=== PATIENT | male | born 1940 | race African-American/Black ===

== ENCOUNTER 2018-08-24 16:20 | Emergency (ER) | payer MEDICARE, MEDICAID | END 2018-08-24 16:38 | disposition left against medical advice (07) | LOC: ERS 16:20 | DX: Z53.21 Procedure and treatment not carried out due to patient leaving prior to being seen by health care provider (principal) ==

== ENCOUNTER 2020-01-02 09:54 | Emergency (ER) | payer MEDICARE ==
[2020-01-02 11:03] LABS: #Basophils 0.1 thou/uL (0.0-0.2); #Eosinphils 0.4 thou/uL (0.0-0.7); #Monocytes 0.6 thou/uL (0.11-0.59); #Neutrophils 4.7 thou/uL (1.40-6.50); %Basophils 0.6 % (0.0-1.0); %Lymphocytes 34.1 % (21.0-51.0); %Neutrophils 53.2 % (42.0-75.0); Hemoglobin 11.6 g/dL (14.0-18.0); Mean Corpuscular HGB CONC 33.7 g/dL (32.0-36.0); Mean Corpuscular Hemoglobin 36.5 pg (27.0-31.0); Mean Platelet Volume 7.4 fL (7.4-10.4); Platelet Count 271 thou/uL (130-400); RBC Distribution Width 12.4 % (11.5-14.5); Red Blood Cell (RBC) Count 3.19 mill/uL (4.70-6.10); White Blood Cell (WBC) Count 8.8 thou/uL (4.8-10.8)
[2020-01-02 11:25] LABS: ALT (SGPT) 12 U/L (8-55); AST (SGOT) 15 U/L (5-34); Albumin 3.4 g/dL (3.4-4.8); Alkaline Phosphatase 79 U/L (40-110); Anion Gap 11 mmol/L (10-20); BUN (Urea Nitrogen) 15 mg/dL (8.4-25.7); Bilirubin, Total 0.4 mg/dL (0.2-1.2); Calc. Creatinine Clearance 0 mL/min (70-130); Calcium 8.8 mg/dL (7.8-10.44); Carbon Dioxide 25 mmol/L (23-31); Chloride 106 mmol/L (98-107); Estimated GFR-MDRD 84; Globulin 2.8 g/dL (2.4-3.5); Glucose 90 mg/dL (83-110); Potassium 3.9 mmol/L (3.5-5.1); Protein, Total 6.2 g/dL (5.8-8.1); Sodium 138 mmol/L (136-145)
--- NOTE | 2020-01-02 11:36 | RAD ---
RADIOGRAPH CHEST 1 VIEW: DATE: 01/02/2020 HISTORY: 79-year-old male with hypertension, status post acute chest trauma from fall. FINDINGS: There are no air space densities, pulmonary edema, pneumothorax, or cardiomegaly. The lateral costop hrenic angles are sharp. IMPRESSION: No acute cardiopulmonary findings. [email or web address] [] POS: [facility]
[2020-01-02 12:10] LABS: MDiff Complete? YES; Macrocytosis SLIGHT = 6-15 cells (100X) (0-5/hpf); Platelet Morphology Comment Appears Adequate
[2020-01-02] MEDS ORDERED: Amlodipine 5 MG TAB ONE (12:33)
--- NOTE | 2020-01-07 12:07 | EKG ---
Test Reason : Blood Pressure : / mmHG Vent. Rate : 044 BPM Atrial Rate : 044 BPM P-R Int : 178 ms QRS Dur : 088 ms QT Int : 476 ms P-R-T Axes : 071 049 053 degrees QTc Int : 406 ms Marked sinus bradycardia Abnormal ECG Confirmed by GRZEGORZ THURMAN M.D. ([id number]), editorial manager JJ ZAPATA ([id number]) on 01/07/2020 12:07:13 PM Referred By: Confirmed By:GRZEGORZ THURMAN M.D.
== END 2020-01-02 12:56 | disposition home or self-care (01) ==
LOC: ERS 09:54
DX: I10 Essential (primary) hypertension (principal); R00.1 Bradycardia, unspecified; F17.210 Nicotine dependence, cigarettes, uncomplicated; Z76.0 Encounter for issue of repeat prescription; Z79.899 Other long term (current) drug therapy
CPT/HCPCS: 71045; 80053; 83880; 84443; 84484; 85025; 93005

== ENCOUNTER 2020-08-07 13:27 | Inpatient (IN) | payer MEDICARE ==
[2020-08-07 15:00] LABS: Hemoglobin 13.1 g/dL (14.0-18.0); Mean Corpuscular Hemoglobin 34.4 pg (27.0-31.0); Mean Platelet Volume 7.7 fL (7.4-10.4); Platelet Count 266 thou/uL (130-400); RBC Distribution Width 12.5 % (11.5-14.5); Red Blood Cell (RBC) Count 3.79 mill/uL (4.70-6.10); White Blood Cell (WBC) Count 9.1 thou/uL (4.8-10.8)
[2020-08-07 15:01] LABS: #Lymphocytes 0.8 thou/uL (1.20-3.40); #Monocytes 0.3 thou/uL (0.11-0.59); #Neutrophils 8.1 thou/uL (1.40-6.50); %Eosinophils 0.1 % (0.0-10.0); %Lymphocytes 8.8 % (21.0-51.0); %Monocytes 2.8 % (0.0-10.0); %Neutrophils 88.3 % (42.0-75.0)
[2020-08-07 15:18] LABS: MDiff Complete? YES; Macrocytosis SLIGHT = 6-15 cells (100X) (0-5/hpf); Platelet Morphology Comment Appears Adequate; Polychromasia SLIGHT = 2-3 cells (100X) (0-2/hpf)
[2020-08-07 17:17] LABS: ALT (SGPT) 9 U/L (8-55); AST (SGOT) 20 U/L (5-34); Albumin 4.2 g/dL (3.4-4.8); Alkaline Phosphatase 97 U/L (40-110); Anion Gap 16 mmol/L (10-20); BUN (Urea Nitrogen) 20 mg/dL (8.4-25.7); Bilirubin, Total 0.5 mg/dL (0.2-1.2); Calc. Creatinine Clearance 0 mL/min (70-130); Calcium 9.9 mg/dL (7.8-10.44); Carbon Dioxide 22 mmol/L (23-31); Chloride 107 mmol/L (98-107); Globulin 3.5 g/dL (2.4-3.5); Glucose 106 mg/dL (83-110); Potassium 4.6 mmol/L (3.5-5.1); Protein, Total 7.7 g/dL (5.8-8.1); Sodium 140 mmol/L (136-145)
[2020-08-07] MEDS ORDERED: Amlodipine 10 MG TAB PO SCH (17:45)
[2020-08-07] MEDS ORDERED: Hydrochlorothiazide 25 MG TAB PO SCH (17:45)
[2020-08-07] MEDS ORDERED: Amlodipine 5 MG TAB PO SCH (18:00)
[2020-08-07] MEDS ORDERED: Calcium Carbonate 500 MG ChewTAB PO PRN (18:00)
[2020-08-07] MEDS ORDERED: NIFEdipine XL 30 MG TAB PO SCH (18:00)
[2020-08-07] MEDS ORDERED: Acetaminophen 325 MG TAB PO PRN (18:00)
[2020-08-07] MEDS ORDERED: Ondansetron ODT 4 MG TAB PO PRN (18:00)
[2020-08-07] MEDS ORDERED: NIFEdipine XL 30 MG TAB ONE (18:09)
[2020-08-07 19:36] LABS: Troponin I 0.012 ng/mL (< 0.028)
[2020-08-07 22:33] LABS: Bacteria/HPF None Seen HPF (None Seen); Bilirubin Negative (Negative); Blood, Urine Negative (Negative); Clarity Clear (Clear); Glucose, Urine (Dipstick) Normal (Negative); Ketone, Urine 10 mg/dL (Negative); Leukocyte Negative Leu/uL (Negative); Nitrite Negative (Negative); Protein, Urine (Dipstick) 50 mg/dL (Neg-Trace); RBC/HPF 0-3 HPF (0-3); Specific Gravity, Urine 1.022 (1.002-1.036); Squamous Epithelial 0-3 HPF (0-3); WBC/HPF 0-3 HPF (0-3); pH, Urine 6.5 (5.0-9.0)
[2020-08-07 22:37] LABS: Troponin I 0.021 ng/mL (< 0.028)
[2020-08-07 22:40] LABS: Medtox Reader # READER 4
[2020-08-07 22:41] LABS: Amphetamine Not Detected (NotDetected); Barbiturates Screen Not Detected (NotDetected); Benzodiazepine Screen Not Detected (NotDetected); Cocaine Metabolite Screen Not Detected (NotDetected); Medtox Control Line Valid? VALID (VALID); Methadone Not Detected (NotDetected); Methamphetamine Not Detected (NotDetected); Opiate Screen Not Detected (NotDetected); Oxycodone Screen Not Detected (NotDetected); Phencyclidine (PCP) Not Detected (NotDetected); THC/Cannabinoid Screen Not Detected (NotDetected); Tricyclic Screen Not Detected (NotDetected)
[2020-08-08 04:54] LABS: SARS-CoV-2 PCR by NAA Not Detected (NotDetected)
[2020-08-08 04:59] LABS: #Basophils 0.1 thou/uL (0.0-0.2); #Eosinphils 0.1 thou/uL (0.0-0.7); #Lymphocytes 3.2 thou/uL (1.20-3.40); #Monocytes 0.6 thou/uL (0.11-0.59); #Neutrophils 5.6 thou/uL (1.40-6.50); %Basophils 0.9 % (0.0-1.0); %Lymphocytes 33.1 % (21.0-51.0); %Monocytes 6.2 % (0.0-10.0); %Neutrophils 58.8 % (42.0-75.0); Hemoglobin 11.7 g/dL (14.0-18.0); Mean Corpuscular HGB CONC 31.8 g/dL (32.0-36.0); Mean Platelet Volume 7.8 fL (7.4-10.4); Platelet Count 259 thou/uL (130-400); RBC Distribution Width 12.5 % (11.5-14.5); Red Blood Cell (RBC) Count 3.43 mill/uL (4.70-6.10); White Blood Cell (WBC) Count 9.5 thou/uL (4.8-10.8)
[2020-08-08 05:20] LABS: Anion Gap 12 mmol/L (10-20); BUN (Urea Nitrogen) 21 mg/dL (8.4-25.7); Calc. Creatinine Clearance 61 mL/min (70-130); Calcium 9.1 mg/dL (7.8-10.44); Carbon Dioxide 24 mmol/L (23-31); Cardiac Risk 4.7 (Less than 4.5); Chloride 106 mmol/L (98-107); Cholesterol 178 mg/dl (< 200 Desired); Glucose 89 mg/dL (83-110); HDL Cholesterol 38 mg/dL (>60 Neg Risk); LDL Cholesterol, Calculated 118 mg/dL; Magnesium 1.8 mg/dL (1.6-2.6); Potassium 3.7 mmol/L (3.5-5.1); Sodium 138 mmol/L (136-145); Triglycerides 109 mg/dL (Less than 150)
[2020-08-08] MEDS ORDERED: FLU VACC QS2020-21(65YR UP)/PF 240 MCG/0.7 ML SYRINGE IM ONE ×2 (09:00→18:00)
[2020-08-08] MEDS ORDERED: Folic Acid 1 MG TAB PO SCH (09:00)
[2020-08-08] MEDS ORDERED: NIFEdipine XL 30 MG TAB PO SCH (09:00)
[2020-08-08] MEDS ORDERED: Hydrochlorothiazide 25 MG TAB PO SCH (09:00)
[2020-08-08] MEDS ORDERED: Cyanocobalamin 1000 MCG/ML VIAL IM SCH (09:15)
[2020-08-08] MEDS ORDERED: Sodium Chloride 0.9% 500 ML IV SCH (09:15)
[2020-08-08] MEDS ORDERED: Aspirin 325 MG TAB PO SCH (10:45)
[2020-08-08] MEDS ORDERED: Sodium Chloride 0.9% 1,000 ML IV SCH (10:45)
[2020-08-08 11:51] VITALS: TEMP 97.5
[2020-08-08] MEDS ORDERED: Iopamidol 370 76% 100 ML VIAL ONE (14:48)
[2020-08-08 15:14] VITALS: BP 159/72
[2020-08-08] MEDS ORDERED: Amlodipine 5 MG TAB PO SCH (21:00)
[2020-08-08] MEDS ORDERED: Atorvastatin Calcium 40 MG TAB PO SCH (21:00)
[2020-08-09] MEDS ORDERED: Cyanocobalamin (Vitamin B-12) 1,000 MCG TAB PO SCH (09:00)
[2020-08-09] MEDS ORDERED: Multivit, Therapeutic 1 TAB PO SCH (09:00)
[2020-08-09] MEDS ORDERED: Aspirin 325 mg Enteric Coated Tablet PO SCH (09:00)
== END 2020-08-08 17:15 | disposition home or self-care (01) | DRG 68 ==
LOC: ERS 13:27 → 2SW 17:25 → OBSVTOIN 08-08 10:46
PROVIDERS: ADMIT Internal Medicine; ATTEND Internal Medicine
DX: I65.21 Occlusion and stenosis of right carotid artery (principal); I16.0 Hypertensive urgency; I10 Essential (primary) hypertension; R00.1 Bradycardia, unspecified; F17.210 Nicotine dependence, cigarettes, uncomplicated; D53.9 Nutritional anemia, unspecified; Z20.822 Contact with and (suspected) exposure to COVID-19; Z91.19 Patient's noncompliance with other medical treatment and regimen; Z71.6 Tobacco abuse counseling
CPT/HCPCS: 36415; 70496; 70498; 71046; 80048; 80053; 80061; 80306; 81015; 82607; 82746; 83735; 84443; 84484; 85025; 87635; 90471; 90662; 90732; 93005; 93306; 93880; 96372; G0008; G0009; G0378; J3420; Q9967; U0003; U0005

== ENCOUNTER 2020-09-26 15:45 | Inpatient (IN) | payer MEDICARE ==
[2020-10-01] MEDS ORDERED: Protamine Sulfate 50 MG/5 ML VIAL ONE (06:32)
[2020-10-01] MEDS ORDERED: Heparin 5,000 UNITS/ML VIAL ONE (06:32)
[2020-10-01] MEDS ORDERED: Bupivacaine PF 0.5% 30 ML VIAL ONE (06:49)
[2020-10-01] MEDS ORDERED: EPINEPHrine 1 MG/ML AMP ONE (06:49)
[2020-10-01] MEDS ORDERED: Fentanyl 100 MCG/2 ML VIAL ONE (07:30)
[2020-10-01] MEDS ORDERED: Rocuronium Bromide 10 MG/ML (10ML VIAL) ONE (07:47)
[2020-10-01] MEDS ORDERED: Ketorolac Tromethamine 30 MG/ML VIAL ONE (07:47)
[2020-10-01] MEDS ORDERED: Lidocaine 1% PF 5 ML VIAL ONE (07:47)
[2020-10-01] MEDS ORDERED: Glycopyrrolate 0.2 MG/ML 5 ML SYRINGE ONE ×2 (07:47)
[2020-10-01] MEDS ORDERED: Ondansetron PF 4 MG/2 ML Vial ONE (07:47)
[2020-10-01] MEDS ORDERED: Dexamethasone 20 MG/5 ML VIAL ONE (07:47)
[2020-10-01] MEDS ORDERED: PROPOFOL 200 MG/20 ML VIAL ONE (07:47)
[2020-10-01] MEDS ORDERED: hydrALAZINE 20 MG/ML VIAL ONE ×2 (09:40→13:15)
[2020-10-01] MEDS ORDERED: HYDROcodone/Acetaminophen 5/325 mg Tablet PO PRN ×2 (12:24)
[2020-10-01] MEDS ORDERED: Promethazine HCl 25 MG/ML VIAL IM PRN (12:24)
[2020-10-01] MEDS ORDERED: Ondansetron PF 4 MG/2 ML Vial IVP PRN (12:24)
[2020-10-01] MEDS ORDERED: Acetaminophen 325 MG TAB PO PRN (12:24)
[2020-10-01] MEDS ORDERED: Norepinephrine 8 MG/0.9% NS 250 ML IVPB PRN (12:24)
[2020-10-01] MEDS ORDERED: Fentanyl 100 MCG/2 ML VIAL SLOW IVP PRN ×2 (12:24)
[2020-10-01] MEDS ORDERED: hydrALAZINE 20 MG/ML VIAL SLOW IVP PRN (12:24)
[2020-10-01] MEDS ORDERED: niCARdipine 25 MG in Sodium Chloride 0.9% 250 ML 250 ML IVPB PRN (12:24)
[2020-10-01] MEDS: Sodium Chloride 0.9% 1,000 ML IV SCH (14:23)
[2020-10-01] MEDS: CEFAZOLIN 2 GM in Premix Bag 1 BAG IVPB SCH ×2 (14:23→23:21)
[2020-10-01 15:30] VITALS: BMI 25.4
[2020-10-02] MEDS: CEFAZOLIN 2 GM in Premix Bag 1 BAG IVPB SCH (07:09)
[2020-10-02] MEDS: Sodium Chloride 0.9% 1,000 ML IV SCH (07:09)
[2020-10-02 07:15] VITALS: TEMP 98
[2020-10-02] MEDS ORDERED: Amlodipine 5 MG TAB PO SCH (09:00)
== END 2020-10-02 09:06 | disposition home or self-care (01) | DRG 39 ==
LOC: SURG A 10-01 06:16 → CCU 10-01 13:46 → EDSTATUS 10-01 15:45
PROVIDERS: ADMIT Thoracic Surgery (Cardiothoracic Vascular Surgery); ATTEND Thoracic Surgery (Cardiothoracic Vascular Surgery)
PROC: 03CK0ZZ Extirpation of Matter from Right Internal Carotid Artery, Open Approach (ICD-10-PCS; principal; 2020-10-01)
PROC: 03UK0KZ Supplement Right Internal Carotid Artery with Nonautologous Tissue Substitute, Open Approach (ICD-10-PCS; 2020-10-01)
DX: I63.231 Cerebral infarction due to unspecified occlusion or stenosis of right carotid arteries (principal); Z20.822 Contact with and (suspected) exposure to COVID-19; K13.0 Diseases of lips; I10 Essential (primary) hypertension; F17.210 Nicotine dependence, cigarettes, uncomplicated; Z79.82 Long term (current) use of aspirin; Z79.899 Other long term (current) drug therapy; Z91.19 Patient's noncompliance with other medical treatment and regimen; Z82.49 Family history of ischemic heart disease and other diseases of the circulatory system
CPT/HCPCS: 93005; 93010; 94640; J0171; J0360; J0690; J1100; J1642; J1644; J1885; J2405; J2704; J2720; J3010; J7620; S0020

== ENCOUNTER 2020-09-26 16:38 | Outpatient (CLI) | payer MEDICARE ==
[2020-09-26 18:29] LABS: Hemoglobin 11.2 g/dL (13.5-17.5); Mean Corpuscular HGB CONC 32.3 g/dL (32.0-36.0); Mean Corpuscular Hemoglobin 34.1 pg (27.0-33.0); Mean Corpuscular Volume 105.8 fl (81.2-95.1); Mean Platelet Volume 10.9 fl (7.4-10.4); Platelet Count 206 10x3/uL (150-450); RBC Distribution Width 13.5 % (11.5-14.5); Red Blood Cell (RBC) Count 3.28 10x6/uL (4.32-5.72); White Blood Cell (WBC) Count 7.3 10x3/uL (3.5-10.5)
[2020-09-26 18:35] LABS: Anion Gap 13 mmol/L (10-20); BUN (Urea Nitrogen) 11 mg/dL (8.4-25.7); Calc. Creatinine Clearance 0 mL/min (70-130); Calcium 9.3 mg/dL (7.8-10.44); Carbon Dioxide 23 mmol/L (23-31); Chloride 108 mmol/L (98-107); Glucose 135 mg/dL (83-110); Potassium 3.7 mmol/L (3.5-5.1); Sodium 140 mmol/L (136-145)
[2020-09-27 01:06] LABS: SARS-CoV-2 PCR by NAA Not Detected (NotDetected)
== END 2020-09-26 16:39 | disposition home or self-care (01) ==
LOC: LABBT 16:38
PROVIDERS: ATTEND Thoracic Surgery (Cardiothoracic Vascular Surgery)
DX: Z01.812 Encounter for preprocedural laboratory examination (principal); I65.21 Occlusion and stenosis of right carotid artery; Z20.822 Contact with and (suspected) exposure to COVID-19
CPT/HCPCS: 80048; 85027; U0003; U0005; 87635